=== PATIENT | female | born 1985 | race Caucasian/White ===

== ENCOUNTER 2018-08-26 17:29 | Emergency (ER) | payer OTHER ==
[~2018-08-26] VITALS: Ht 162.6 cm; Wt 61.2 kg
[2018-08-26] MEDS ORDERED: MACRODANTIN100 MG PO (17:45)
[2018-08-26 19:22] VITALS: BP 104/69
== END 2018-08-26 19:23 | disposition home or self-care (01) ==
LOC: ER 17:29
DX: R05 Cough (principal); H92.01 Otalgia, right ear